=== PATIENT | male | born 1995 | race African-American/Black ===

== ENCOUNTER 2019-02-19 07:47 | Emergency (ER) | payer SELFPAY ==
--- NOTE | 2019-02-19 08:09 | EDM.PDOC ---
ED HPI GENERAL MEDICAL PROBLEM - General Chief Complaint: Lower Extremity Injury/Pain Stated Complaint: RT KNEE HURTS Time Seen by Provider: 02/19/19 07:52 Source of Information: Reports: Patient History Limitations: Reports: No Limitations - History of Present Illness INITIAL COMMENTS - FREE TEXT/NARRATIVE: History of present illness: []Patient was walking up stairs yesterday and felt a pop in his right knee with pain. This morning he woke up with swelling in his knee and difficulty walking secondary to the pain. He denies any other injuries. Review of systems: As per history of present illness and below otherwise all systems reviewed and negative. Past medical history: As per history of present illness and as reviewed below otherwise noncontributory. Surgical history: As per history of present illness and as reviewed below otherwise noncontributory. Social history: No reported history of drug or alcohol abuse. Family history: As per history of present illness and as reviewed below otherwise noncontributory. Physical exam: General: Well developed, well nourished in NAD HEENT: Atraumatic, normocephalic, pupils reactive, negative for conjunctival pallor or scleral icterus, mucous membranes moist, throat clear, neck supple, nontender, trachea midline. Lungs: Clear to auscultation, breath sounds equal bilaterally, chest nontender. Heart: S1S2, regular, negative for clicks, rubs, or JVD. Abdomen: NABS, Soft, nondistended, nontender. Negative for masses or hepatosplenomegaly. Negative for costovertebral tenderness. Pelvis: Stable nontender. Genitourinary: Deferred. Rectal: Deferred. Extremities: Atraumatic, right knee with no new signs of trauma, old healed scar and localized palpable effusion superior lateral to patella, patient is able to move knee with pain negative for cords or calf pain. Neurovascular unremarkable. Neuro: Awake, alert, oriented. Cranial nerves II through XII unremarkable. Cerebellum unremarkable. Motor and sensory unremarkable throughout. Exam nonfocal. Skin:warm and dry Diagnostics: Right knee x-ray Therapeutics: Toradol IM ED Course: Impression: Prescriptions: Plan: Definitive disposition and diagnosis as appropriate pending reevaluation and review of above. right knee Pain Score (Numeric/FACES): 9 - Related Data Allergies Allergy/AdvReac Type Severity Reaction Status Date / Time No Known Allergies Allergy Verified 02/19/19 07:57 Home Meds: Home Meds . [No Known Home Meds] 02/19/19 [History] Past Medical History - Past Health History Medical/Surgical History: Denies Medical/Surgical History - Infectious Disease History Infectious Disease History: Reports: Chicken Pox - Past Surgical History Musculoskeletal Surgical History: Reports: Shoulder Surgery Social & Family History - Family History Family Medical History: Noncontributory - Tobacco Use Smoking Status *Q: Current Some Day Smoker Years of Tobacco use: 0 Packs/Tins Daily: 0 - Recreational Drug Use Recreational Drug Use: No Review of Systems - Review of Systems Review Of Systems: ROS reveals no pertinent complaints other than HPI. ED EXAM, GENERAL - Physical Exam Exam: See Below (See history of present illness) Course - Vital Signs Last Recorded V/S: Last Vital Signs Temp 97.7 F 02/19/19 07:55 Pulse 83 02/19/19 07:55 Resp 16 02/19/19 07:55 BP 113/70 02/19/19 07:55 Pulse Ox 97 02/19/19 07:55 - Orders/Labs/Meds Orders: Active Orders 24 hr Category Date Time Status Knee 3V Rt [CR] Stat Exams 02/19/19 08:13 Ordered Meds: Medications Discontinued Medications Generic Name Dose Route Start Last Admin Trade Name Freq PRN Reason Stop Dose Admin Ketorolac Tromethamine 60 mg 02/19/19 08:13 02/19/19 08:23 Toradol IM 02/19/19 08:14 60 mg ONETIME ONE Administration Departure - Departure Time of Disposition: 09:02 Disposition: Home, Self-Care 01 Condition: Good Clinical Impression: Right knee sprain Qualifiers: Encounter type: initial encounter Involved ligament of knee: other ligament Qualified Code(s): S83.8X1A - Sprain of other specified parts of right knee, initial encounter - Discharge Information *PRESCRIPTION DRUG MONITORING PROGRAM REVIEWED*: No *COPY OF PRESCRIPTION DRUG MONITORING REPORT IN PATIENT BETH: No Referrals: PCP,None [Primary Care Provider] - Forms: ED Department Discharge Additional Instructions: The following information is given to patients seen in the emergency department who are being discharged to home. This information is to outline your options for follow-up care. We provide all patients seen in our emergency department with a follow-up referral. The need for follow-up, as well as the timing and circumstances, are variable depending upon the specifics of your emergency department visit. If you don't have a primary care physician on staff, we will provide you with a referral. We always advise you to contact your personal physician following an emergency department visit to inform them of the circumstance of the visit and for follow-up with them and/or the need for any referrals to a consulting specialist. The emergency department will also refer you to a specialist when appropriate. This referral assures that you have the opportunity for follow-up care with a specialist. All of these measure are taken in an effort to provide you with optimal care, which includes your follow-up. Under all circumstances we always encourage you to contact your private physician who remains a resource for coordinating your care. When calling for follow-up care, please make the office aware that this follow-up is from your recent emergency room visit. If for any reason you are refused follow-up, please contact the [facility] at and asked to speak to the emergency department charge nurse. [facility] [address] [place] [address] - My Orders Last 24 Hours: My Active Orders 02/19/19 08:13 Knee 3V Rt [CR] Stat - Assessment/Plan Last 24 Hours: My Active Orders 02/19/19 08:13 Knee 3V Rt [CR] Stat
[2019-02-19] MEDS ORDERED: Ketorolac 60 MG/2 ML SDV IM ONE (08:13)
--- NOTE | 2019-02-19 10:05 | CR ---
EXAM DATE: 02/19/19 PATIENT'S AGE: 23 Patient: CHONG LOMBARDI Facility: [facility], [facility] . Site : 1995 Study: XRay-Knee Right [id number]/6/2019 9:11:32 AM Ordering Physician: ANGELINA HERNÁNDEZ MD Final Report: 3 VIEWS right knee. INDICATION: Pain. IMPRESSION: 1. Anterior soft tissue density versus effusion of the right knee correlate with clinical exam. 2. Cortical irregularity posterior tibial plateau correlate with injury mechanism. The lateral view is not well penetrated if there is clinical concern for a posterior plateau fracture consider further evaluation with CT scan. FINDINGS: The cross-table lateral view shows prominent suprapatellar soft tissue although no obvious fat fluid level. Cortical irregularity is present along the posterior margin of the proximal tibia on the cross-table lateral view. The alignments are satisfactory. The joint spaces are maintained. Dictated by Zeke Tyson MD @ Feb 19 2019 9:28AM Signed by: Zeke Tyson MD @02/19/2019 9:31:12 AM (Electronic Signature) Report Signed by Proxy. KARLENE
== END 2019-02-19 09:12 | disposition home or self-care (01) ==
LOC: MW.ED 07:47
DX: S83.8X1A Sprain of other specified parts of right knee, initial encounter (principal); F17.210 Nicotine dependence, cigarettes, uncomplicated; W10.9XXA Fall (on) (from) unspecified stairs and steps, initial encounter
CPT/HCPCS: 73562; 96372; 99283; J1885

== ENCOUNTER 2019-12-14 14:00 | Emergency (ER) | payer SELFPAY ==
--- NOTE | 2019-12-14 14:37 | EDM.PDOC ---
ED HPI GENERAL MEDICAL PROBLEM - General Chief Complaint: Laceration Stated Complaint: GASH LT LEG Time Seen by Provider: 12/14/19 14:34 Source of Information: Reports: Patient History Limitations: Reports: No Limitations - History of Present Illness INITIAL COMMENTS - FREE TEXT/NARRATIVE: HISTORY AND PHYSICAL: History of present illness: Patient is a 24-year-old male presents to the ED for a laceration. Patient states he fell early this morning around 3am after he had been drinking. He states he fell outside on to his left knee, doesn't know what he fell on or how he fell. Denies head injury or loss of consciousness and denies headache, nausea , or vomiting. Patient states he is able to bear weight on the left leg without difficulty. He states he is UTD on tdap. Review of systems: As per history of present illness and below otherwise all systems reviewed and negative. Past medical history: As per history of present illness and as reviewed below otherwise noncontributory. Surgical history: As per history of present illness and as reviewed below otherwise noncontributory. Social history: No reported history of drug or alcohol abuse. Family history: As per history of present illness and as reviewed below otherwise noncontributory. Physical exam: General: Patient sitting comfortably in no acute distress and nontoxic appearing HEENT: Atraumatic, normocephalic, pupils reactive, negative for conjunctival pallor or scleral icterus, mucous membranes moist, throat clear, neck supple, nontender, trachea midline. No meningeal signs. Extremities: 3x1cm laceration to the anterior left knee. negative for cords or calf pain. Neurovascular unremarkable. Neuro: Awake, alert, oriented. Cranial nerves II through XII unremarkable. Cerebellum unremarkable. Motor and sensory unremarkable throughout. Exam nonfocal. Notes: Since it has been at least 8 hours since laceration occured, I taced the wound together loosely rather than a full closure of the wound. Diagnostics: declined knee x-ray Therapeutics: Laceration repair - see procedure note Prescriptions: none Impression: Laceration Plan: Keep the area clean and dry as instructed Follow up for suture removal in 7 days Return to ED As needed as discussed Definitive disposition and diagnosis as appropriate pending reevaluation and review of above. Left Knee Pain Score (Numeric/FACES): 8 - Related Data Allergies Allergy/AdvReac Type Severity Reaction Status Date / Time No Known Allergies Allergy Verified 12/14/19 14:23 Home Meds: Home Meds . [No Known Home Meds] 02/19/19 [History] Past Medical History - Past Health History Medical/Surgical History: Denies Medical/Surgical History - Infectious Disease History Infectious Disease History: Reports: Chicken Pox - Past Surgical History Musculoskeletal Surgical History: Reports: Shoulder Surgery Social & Family History - Family History Family Medical History: Noncontributory - Tobacco Use Smoking Status *Q: Current Every Day Smoker Years of Tobacco use: 5 Packs/Tins Daily: 1 - Caffeine Use Caffeine Use: Reports: Coffee, Soda - Recreational Drug Use Recreational Drug Use: No ED ROS GENERAL - Review of Systems Review Of Systems: Comprehensive ROS is negative, except as noted in HPI. ED EXAM, SKIN/RASH Exam: See Below (see dictation) Course - Vital Signs Last Recorded V/S: Last Vital Signs Temp 97.6 F 12/14/19 14:20 Pulse 88 12/14/19 14:20 Resp 16 12/14/19 14:20 BP 124/67 12/14/19 14:20 Pulse Ox 96 12/14/19 14:20 - Orders/Labs/Meds Meds: Medications Discontinued Medications Generic Name Dose Route Start Last Admin Trade Name Freq PRN Reason Stop Dose Admin Lidocaine/Epinephrine 10 ml 12/14/19 14:55 Xylocaine 1% With Epinephrine 1:100,000 INJECT 12/14/19 14:56 ONETIME ONE Lidocaine/Epinephrine Confirm 12/14/19 15:04 Xylocaine 1% With Epinephrine 1:100,000 Administered 12/14/19 15:05 Dose 20 ml .ROUTE .STK-MED ONE Departure - Departure Time of Disposition: 15:32 Disposition: Home, Self-Care 01 Condition: Good Clinical Impression: Laceration - Discharge Information Referrals: PCP,None [Primary Care Provider] - Forms: ED Department Discharge Additional Instructions: The following information is given to patients seen in the emergency department who are being discharged to home. This information is to outline your options for follow-up care. We provide all patients seen in our emergency department with a follow-up referral. The need for follow-up, as well as the timing and circumstances, are variable depending upon the specifics of your emergency department visit. If you don't have a primary care physician on staff, we will provide you with a referral. We always advise you to contact your personal physician following an emergency department visit to inform them of the circumstance of the visit and for follow-up with them and/or the need for any referrals to a consulting specialist. The emergency department will also refer you to a specialist when appropriate. This referral assures that you have the opportunity for follow-up care with a specialist. All of these measure are taken in an effort to provide you with optimal care, which includes your follow-up. Under all circumstances we always encourage you to contact your private physician who remains a resource for coordinating your care. When calling for follow-up care, please make the office aware that this follow-up is from your recent emergency room visit. If for any reason you are refused follow-up, please contact the [facility] at and asked to speak to the emergency department charge nurse. [facility] [address] [place] [id number] [facility] [address] [place] [id number] Keep the area clean and dry as instructed Follow up for suture removal in 7 days Return to ED As needed as discussed Sepsis Event Note - Evaluation Sepsis Screening Result: No Definite Risk - Focused Exam Vital Signs: Vital Signs Temp Pulse Resp BP Pulse Ox 12/14/19 14:20 97.6 F 88 16 124/67 96 Date Exam was Performed: 12/14/19 Time Exam was Performed: 15:29
[2019-12-14] MEDS ORDERED: Lidocaine 1% with EPINEPHrine 1:100,000 10 ML MDV INJECT ONE (14:55)
[2019-12-14] MEDS ORDERED: Lidocaine 1% with EPINEPHrine 1:100,000 20 ML MDV ONE (15:04)
== END 2019-12-14 15:55 | disposition home or self-care (01) ==
LOC: MW.ED 14:00
DX: S81.012A Laceration without foreign body, left knee, initial encounter (principal); W19.XXXA Unspecified fall, initial encounter
CPT/HCPCS: 12002; 99282

== ENCOUNTER 2019-12-24 11:22 | Emergency (ER) | payer SELFPAY | END 2019-12-24 11:38 | disposition left against medical advice (07) | LOC: MW.ED 11:22 | DX: Z53.21 Procedure and treatment not carried out due to patient leaving prior to being seen by health care provider (principal) ==